=== PATIENT | female | born 1985 | race Caucasian/White ===

== ENCOUNTER 2020-01-01 15:14 | Emergency (ER) | payer MEDICAID, OTHER ==
[~2020-01-01] VITALS: Ht 170.1 cm; Wt 97.5 kg
--- NOTE | 2020-01-01 15:33 | ED GU-Female ---
General Chief Complaint: Female Reproductive Stated Complaint: ABNORMAL VAGINAL BLEEDING/OB Source: patient Exam Limitations: no limitations History of Present Illness Date Seen by Provider: Jan 01, 2020 Time Seen by Provider: 15:33 Initial Comments 34-year-old female presents with vaginal bleeding. Patient's last menstrual period was partially 11/18/2019. She is approximately 6 weeks 1 day . with due date 08/25/20. Patient reports she was out working and felt a "gush of blood" she still has mild light bleeding. Patient does not have any abdominal pain. She has some mid abdominal cramping but no lower pelvis or abdominal cramping. Patient with no other systemic complaints. Allergies and Home Medications Allergies Coded Allergies: No Known Drug Allergies (Unverified , 01/01/20) Home Medications Vit/Iron Fumarate/FA 1 Each Tablet, 1 EACH PO DAILY, (Reported) Patient Home Medication List Home Medication List Reviewed: Yes Review of Systems Review of Systems Constitutional: No chills, No fever EENTM: no symptoms reported Respiratory: no symptoms reported Cardiovascular: no symptoms reported Gastrointestinal: no symptoms reported Genitourinary: see HPI : Yes Expected Date of Delivery: Aug 25, 2020 LMP: November 18, 2019 Musculoskeletal: no symptoms reported Skin: no symptoms reported Psychiatric/Neurological: No Symptoms Reported Past Vmosuqt-Pvlodc-Wmipoq Hx Patient Social History Recent Foreign Travel: No Contact w/Someone Who Travel: No Physical Exam Vital Signs Vital Signs - First Documented 01/01/20 15:18 Temp 36.7 Pulse 100 Resp 18 B/P (MAP) 153/84 (107) Pulse Ox 98 O2 Delivery Room Air Capillary Refill : Height, Weight, BMI Height: '" Weight: lbs. oz. kg; BMI Method: General Appearance: WD/WN, no apparent distress Cardiovascular: normal peripheral pulses, regular rate, rhythm Respiratory: chest non-tender, lungs clear Gastrointestinal: non tender, soft Pelvic: vaginal bleeding, other (defered at pt request ) Progress/Results/Core Measures Suspected Sepsis SIRS Temperature: Pulse: Respiratory Rate: Blood Pressure / Mean: Results/Orders Lab Results Laboratory Tests Test 01/01/20 15:26 01/01/20 15:55 Range/Units Urine Color ORANGE Urine Clarity SLT CLOUDY Urine pH 5.5 5-9 Urine Specific [place] >=1.030 1.016-1.022 Urine Protein 2+ H NEGATIVE Urine Glucose (UA) NEGATIVE NEGATIVE Urine Ketones NEGATIVE NEGATIVE Urine Nitrite NEGATIVE NEGATIVE Urine Bilirubin 1+ H NEGATIVE Urine Urobilinogen 0.2 < = 1.0 MG/DL Urine Leukocyte Esterase NEGATIVE NEGATIVE Urine RBC (Auto) 3+ H NEGATIVE Urine RBC 50-100 H /HPF Urine WBC RARE /HPF Urine Squamous Epithelial Cells 10-25 H /HPF Urine Crystals NONE /LPF Urine Bacteria TRACE /HPF Urine Casts NONE /LPF Urine Mucus NEGATIVE /LPF Urine Culture Indicated NO My Orders Orders - JEREMIE GRAY DO Hcg,Quantitative (01/01/20 15:33) Ua Culture If Indicated (01/01/20 15:34) Vital Signs/I&O 01/01/20 15:18 Temp 36.7 Pulse 100 Resp 18 B/P (MAP) 153/84 (107) Pulse Ox 98 O2 Delivery Room Air Capillary Refill : Progress Note : Time: 15:42 Progress Note Patient is not having any pelvic pain. And pelvic exam was offered but deferred. Patient is only approximately 6 weeks . Discussed with her that at this time is difficult to say if she is having a miscarriage or not. We will obtain a quantitative hCG and have her follow-up with her OB in 2 days for a recheck. Patient stable and discharged home Departure Impression Primary Impression: Threatened in early Disposition: 01 HOME, SELF-CARE Condition: Stable Departure-Patient Inst. Patient Instructions: Bleeding In Early , Threatened Miscarriage (DC) Add. Discharge Instructions: Follow-up with Dr. Brandt in a couple days for recheck of today symptoms All discharge instructions reviewed with patient and/or family. Voiced understanding. JEREMIE GRAY DO Jan 01, 2020 15:33
[2020-01-01] MEDS ORDERED: PREN-37 PO (15:34)
[2020-01-01 15:53] LABS: CLARITY,URINE SLT CLOUDY; COLOR,URINE ORANGE; PH,URINE 5.5 (5-9)
[2020-01-01 15:54] LABS: BILIRUBIN,URINE 1+ (NEGATIVE); GLUCOSE, URINE (UA) NEGATIVE (NEGATIVE); KETONES,URINE NEGATIVE (NEGATIVE); LEUKOCYTE ESTERASE ,URINE NEGATIVE (NEGATIVE); NITRITE,URINE NEGATIVE (NEGATIVE); PROTEIN,URINE 2+ (NEGATIVE)
[2020-01-01 15:55] LABS: BACTERIA,URINE TRACE /HPF; RBC,URINE 50-100 /HPF; WBC,URINE RARE /HPF
[2020-01-01 16:25] VITALS: BP 153/84
--- NOTE | 2020-01-01 16:25 | NUR ---
RN to discharge registration desk as patient left room after in to speak with patient regarding discharge plan. Pt ready to leave and did not know D/C instructions being typed. Presented papers to patient and reviewed with pt verbalizing understanding of instructions. Pt was not asked to re-enter ER for discharge vitals. Pt reports plan to call Dr Ledesma office for follow up and review the HCG Qualitative number as she states the OBGYN ordered this test on her visit.
--- OUTSIDE RECORDS SUMMARY | 2020-01-01 17:00 | XMS REPORT | Continuity of Care Document ---
Author Organization Unknown Address Unknown Phone Unavailable Allergies Active Description Code Type Severity Reaction Onset Reported/Identified Relationship to Patient Clinical Status Yes No Known Drug Allergies [id number] Drug Allergy Unknown N/A 01/01/2020 Medications There is no data. Problems There is no data. Procedures There is no data. Results Test Result Range SUREPATH PAP RFX HPV mRNA E6/E7 - 00:00 CLINICAL INFORMATION: NRG LMP: NRG PREV. PAP: NRG PREV. BX: NRG SOURCE: Cervix NRG STATEMENT OF ADEQUACY: NRG INTERPRETATION/RESULT: NRG DRIVE AWAY DRIVER: NRG COMMENT NRG BLOOD TPYE/RH FACTOR - 12/10/19 11:31 ABO GROUP TNP NRG BLOOD TPYE/RH FACTOR - 12/15/19 13:17 ABO GROUP O NRG RH TYPE RH(D) POSITIVE NRG ANTIBODY SCREEN - 12/15/19 13:17 ANTIBODY SCREEN, RBC W/REFL ID, TITER AND AG NO ANTIBODIES DETECTED NRG RUBELLA IMMUNE STATUS - 12/15/19 13:17 RUBELLA ANTIBODY (IGG) TNP index NRG Complete urinalysis with reflex to cultu re - 01/01/20 15:26 Urine color determination ORANGE NRG Urine clarity determination SLT CLOUDY NRG Urine pH measurement by test strip 5.5 5-9 Specific gravity of urine by test strip >= 1.016-1.022 Urine protein assay by test strip, semi-quantitative 2+ NEGATIVE Urine glucose detection by automated test strip NE GATIVE NEGATIVE Erythrocytes detection in urine sediment by light micr oscopy 3+ NEGATIVE Urine ketones detection by automated test strip NE GATIVE NEGATIVE Urine nitrite detection by test strip NEGATIVE NEGATIVE Urine total bilirubin detection by test strip 1+ NEGATIVE Urine urobilinogen measurement by automated test strip (mass/volume) 0.2 mg/dL < = 1.0 Urine leukocyte esterase detection by dipstick NEG ATIVE NEGATIVE Automated urine sediment erythrocyte cou nt by microscopy (number/high power field) [HPF] NRG Automated urine sediment leukocyte count by microscopy (number/high power field) RARE NRG Bacteria detection in urine sediment by light microsco py TRACE NRG Squamous epithelial cells detection in u rine sediment by light microscopy 10-25 NRG Crystals detection in urine sediment by light microsco py NONE NRG Casts detection in urine sediment by light microscopy NONE NRG Mucus detection in urine sediment by light microscopy NEGATIVE NRG Complete urinalysis with reflex to culture NO NRG Serum or plasma choriogonadotropin measu rement (units/volume) - 01/01/20 15:55 Serum or plasma choriogonadotropin measurement (units/ volume) 92489 m[iU]/mL <5 Encounters ACCT No. Visit Date/Time Discharge Status Pt. Type Provider Facility Loc./Unit Complaint [id number] 12/15/2019 12:30:00 12/15/2019 23:59: 59 [facility] Outpatient CLAUDIO ELDER [facility] [id number] 12/15/2019 12:30:00 Document Registration [id number] 12/10/2019 10:30:00 Document Registration [id number] 01/01/2020 15:16:00 020 16:25:00 DIS Emergency GRAY DOKERAR Eduar [facility] ER FS ABNORMAL VAGINAL BLEEDI NG DURING
== END 2020-01-01 16:25 | disposition home or self-care (01) ==
LOC: ER FS 15:16
DX: O20.0 Threatened abortion (principal); Z3A.01 Less than 8 weeks gestation of pregnancy
CPT/HCPCS: 36415; 81000; 84702

== ENCOUNTER → 2020-05-19 | Outpatient (CLI) | payer MEDICAID ==
[~2020-05-19] MED LIST: PREN-37 PO
[2020-05-19 10:21] LABS: HEMATOCRIT 34 % (35-52); HEMOGLOBIN 11.5 G/DL (11.5-16.0); LYMPHOCYTES % (AUTO) 15 % (12-44); MEAN CORPUSCULAR HEMOGLOBIN 33 PG (25-34); MEAN CORPUSCULAR HGB CONC 34 G/DL (32-36); MEAN CORPUSCULAR VOLUME 96 FL (80-99); MEAN PLATELET VOLUME 11.1 FL (7.4-10.4); NEUTROPHILS % (AUTO) 79 % (42-75); PLATELET COUNT 328 10^3/uL (130-400); WHITE BLOOD COUNT 18.1 10^3/uL (4.3-11.0)
[2020-05-19 10:22] LABS: BASOPHILS % (AUTO) 0 % (0-10); EOSINOPHILS % (AUTO) 1 % (0-10); MONOCYTES % (AUTO) 2 % (0-12)
[2020-05-19 10:23] LABS: EOSINOPHILS # (AUTO) 0.2 10^3/uL (0.0-0.3); LYMPHOCYTES # (AUTO) 2.7 X 10^3 (1.0-4.0); MONOCYTES # (AUTO) 0.4 X 10^3 (0.0-1.0); NEUTROPHILS # (AUTO) 14.3 X 10^3 (1.8-7.8)
[2020-05-19 10:36] LABS: BAND NEUTROPHILS 1 %; BASOPHILS % (MANUAL) 0 %; EOSINOPHILS % (MANUAL) 2 %; LYMPHOCYTES % (MANUAL) 11 %; METAMYELOCYTES % 1 %; MONOCYTES % (MANUAL) 0 %; NEUTROPHILS % (MANUAL) 85 %
== END ==
LOC: LAB FS 09:17
PROVIDERS: ATTEND Family Medicine
DX: Z34.92 Encounter for supervision of normal pregnancy, unspecified, second trimester (principal); Z3A.00 Weeks of gestation of pregnancy not specified
CPT/HCPCS: 36415; 82950; 85007; 85027; 86592

== ENCOUNTER 2020-07-30 05:39 | Outpatient (RCR) | payer MEDICAID ==
[~2020-07-30] VITALS: Ht 170.2 cm; Wt 105.9 kg
[~2020-07-30 05:39] MED LIST changes: +PANT40TA52 PO
[2020-08-03] MEDS ORDERED: DCS100C PO (07:28)
[2020-08-03] MEDS ORDERED: IBUP-844 PO (07:28)
[2020-08-03] MEDS ORDERED: ACHD5005 PO (07:28)
== END 2020-08-02 12:29 | disposition home or self-care (01) ==
LOC: PREOP 05:39
PROVIDERS: ATTEND Obstetrics & Gynecology
DX: Z01.812 Encounter for preprocedural laboratory examination (principal); O34.219 Maternal care for unspecified type scar from previous cesarean delivery; Z20.822 Contact with and (suspected) exposure to COVID-19
CPT/HCPCS: 87635

== ENCOUNTER 2020-08-03 06:17 | Inpatient (IN) | payer MEDICAID ==
[~2020-08-03] VITALS: Ht 170.2 cm; Wt 109.2 kg
[2020-08-03] VITALS (8 sets, daily range): BP systolic 101–138; BP diastolic 62–95
[~2020-08-03 06:17] MED LIST changes: +CITRIC ACID/SOB CIT (BICITRA) 30 ML UDC ONE; +FAMOTIDINE 20MG/2ML IV (PEPCID) ONE; +METOCLOPRAMIDE INJ 10 MG/2 ML (REGLAN) ONE; +ceFAZolin 2 GM IV Premixed 50 ML ONE
--- NOTE | 2020-08-03 06:23 | NUR ---
ANATOLY CHANDLER presented to unit via ambulation from home/ED, accompanied by SO, for REPEAT C/S. ANATOLY CHANDLER weighed, gowned, voided, and to bed. EFHM and TOCO applied, VS taken. ANATOLY CHANDLER oriented to bed controls, call light, TV, heat, and A/C controls.
[2020-08-03] MEDS ORDERED: FAMOTIDINE 20MG/2ML IV (PEPCID) IV ONE (06:30)
[2020-08-03] MEDS ORDERED: CATHETER FLUSH 10 ML SYR IV PRN (06:30)
[2020-08-03] MEDS ORDERED: ceFAZolin 2 GM IV Premixed 50 ML IV ONE (06:30)
[2020-08-03] MEDS ORDERED: CITRIC ACID/SOB CIT (BICITRA) 30 ML UDC PO ONE (06:30)
[2020-08-03] MEDS ORDERED: LACTATED RINGERS 1,000 ML IV PRN ×2 (06:30)
[2020-08-03] MEDS ORDERED: METOCLOPRAMIDE INJ 10 MG/2 ML (REGLAN) IV ONE (06:30)
[2020-08-03] MEDS ORDERED: ONDANSETRON 4 MG/2 ML (SDV) Z0FRAN ONE (07:01)
[2020-08-03] MEDS ORDERED: fentaNYL INJECTION 100 MCG/2 ML AMP ONE (07:01)
[2020-08-03] MEDS ORDERED: OXYTOCIN PRE-MIX DRIP 1,000 ML IV ONE (07:01)
[2020-08-03] MEDS ORDERED: BUPIVACAINE 0.5% 30 ML (SENSORCAINE) VIAL ONE (07:04)
[2020-08-03 07:08] LABS: BASOPHILS % (AUTO) 0 % (0-10); EOSINOPHILS # (AUTO) 0.1 10^3/uL (0.0-0.3); EOSINOPHILS % (AUTO) 1 % (0-10); HEMATOCRIT 42 % (35-52); HEMOGLOBIN 13.9 g/dL (11.5-16.0); LYMPHOCYTES # (AUTO) 2.6 10^3/uL (1.0-4.0); LYMPHOCYTES % (AUTO) 17 % (12-44); MEAN CORPUSCULAR HEMOGLOBIN 32 pg (25-34); MEAN CORPUSCULAR HGB CONC 33 g/dL (32-36); MEAN CORPUSCULAR VOLUME 98 fL (80-99); MEAN PLATELET VOLUME 11.6 fL (9.0-12.2); MONOCYTES # (AUTO) 0.7 10^3/uL (0.0-1.0); MONOCYTES % (AUTO) 5 % (0-12); NEUTROPHILS # (AUTO) 11.8 10^3/uL (1.8-7.8); NEUTROPHILS % (AUTO) 77 % (42-75); PLATELET COUNT 315 10^3/uL (130-400); WHITE BLOOD COUNT 15.2 10^3/uL (4.3-11.0)
--- NOTE | 2020-08-03 07:18 | History & Physical-OB ---
OB - Chief Complaint & HPI Date/Time Date of Admission: Date of Admission: Aug 03, 2020 at 06:17 Date seen by a Provider: Aug 03, 2020 Time Seen by a Provider: 07:05 Chief Complaint/History OB-Reason for Admission/Chief: Section Hx : 3 Hx Para: 2 Expected Date of Delivery: Aug 09, 2020 Gestational Age in Weeks: 39 Gestational Age in Days: 2 Admission Nurse Assessment Rev: Yes History of Labs O pos Antibody neg RI RPR NR HBsAg NR HIV NR GC neg Allergies and Home Medications Allergies Coded Allergies: No Known Drug Allergies (Unverified , 01/01/20) Home Medications Pantoprazole Sodium 40 Mg Tablet.dr, 40 MG PO DAILY, (Reported) Vit/Iron Fumarate/FA 1 Each Tablet, 1 EACH PO DAILY, (Reported) Patient Home Medication List Home Medication List Reviewed: Yes OB - History Hx of Present Care: Yes Ultrasounds: Normal mid trimester US Obstetrical Complications: Other (AMA, Tobacco use in ) Medical Complications: None Patient Past Medical History Hx of Tobacco use and LEEP Immunizations Date of Influenza Vaccine: Apr 01, 2020 OB - Admission Exam Physical Exam Vitals: Vital Signs 08/03/20 06:31 Temp 36.5 Pulse 90 Resp 18 Pulse Ox 97 O2 Delivery Room Air HEENT: NCAT Heart: Rhythm Normal Lungs: Clear Abdomen: Gravid Extremities: Normal Reflexes: Normal Heart Rate: 130's Accelerations: Accelerations Present Decelerations: No Decelerations Short Term Variability: Present Marketing Support Coordinator Variability: Average (6-25) Contractions on Admission: < 5 Minutes Apart Intensity: Mild Labs Laboratory Tests Test 08/03/20 06:56 Range/Units OB - Assessment/Plan/Diagnosis Assessment Assessment: section Admission Dx 35 yo @ 39 week Previous Admission Status: Inpatient Order (span 2 midnights) Reason for Inpatient Admission: Repeat Plan Plan: Section GINNA RUTLEDGE DO Aug 03, 2020 07:17
[2020-08-03] MEDS ORDERED: DCS100C PO (07:28)
[2020-08-03] MEDS ORDERED: IBUP-844 PO (07:28)
[2020-08-03] MEDS ORDERED: ACHD5005 PO (07:28)
--- NOTE | 2020-08-03 07:29 | Discharge Inst-Women's Service ---
Discharge Inst-Women's Serv Depart Medication/Instructions New, Converted or Re-Newed RX: RX on Chart Final Diagnosis POD 2 RLTCS Problems Reviewed?: Yes Consults/Follow Up Additional Follow Up: Yes Orders/Referrals Dr. Israel in 7-10 days and in 6 weeks Activity Activity: Activity as Tolerated Driving Instructions: No Driving for 1 Week NO SMOKING: NO SMOKING Nothing Inside Vagina: No Douching, No [place], No Tampons Diet Discharge Diet: No Restrictions Symptoms to Report to : Bleeding Excessive, Pain Increased, Fever Over 101 Degrees F, Vaginal Bleeding Increase, Questions/Concerns For Any Problems or Questions: Contact Your Physician Skin/Wound Care Infection Signs and Symptoms: Increased Redness, Foul Odor of Wound, Increased Drainage, Skin Itchy or Has a Rash, Increased Swelling, Temperature Above 101 F Operative Area Clean and Dry: Keep Incision Clean/Dry Stitches/Amy/Dermabond: Dermabond, Care of Stitches Bathing Instructions: GINNA Sow DO Aug 03, 2020 07:29
[2020-08-03] MEDS ORDERED: MEASLES,MUMPS,RUBELLA 1 EA INJ SC SCH (07:30)
[2020-08-03] MEDS ORDERED: TETANUS,DIPTH,PERTUSS P/F (BOOSTRIX) 0.5 ML VIAL IM SCH (07:30)
[2020-08-03] MEDS ORDERED: ONDANSETRON 4 MG/2 ML (SDV) Z0FRAN IVP PRN (07:30)
--- NOTE | 2020-08-03 07:50 | NUR ---
#20g IV restarted to Lt. AC per anesthesia. secured with opsite.
--- NOTE | 2020-08-03 08:02 | NUR ---
monitors dc'd. pt ambulated to OR room with staff @ side.
[2020-08-03 08:28] LABS: BAND NEUTROPHILS 1 %; BASOPHILS % (MANUAL) 0 %; EOSINOPHILS % (MANUAL) 3 %; LYMPHOCYTES % (MANUAL) 21 %; MONOCYTES % (MANUAL) 3 %; NEUTROPHILS % (MANUAL) 72 %; RBC MORPH NORMAL
[2020-08-03 08:39] LABS: AMPHETAMINE SCREEN, URINE NEGATIVE (NEGATIVE); BARBITURATE SCREEN URINE NEGATIVE (NEGATIVE); BENZODIAZEPINES SCREEN URINE NEGATIVE (NEGATIVE); CANNABINOID SCREEN, URINE POSITIVE (NEGATIVE); COCAINE SCREEN URINE NEGATIVE (NEGATIVE); METHADONE STAT NEGATIVE (NEGATIVE); METHAMPHETAMINE SCREEN URINE S NEGATIVE (NEGATIVE); OPIATE SCREEN URINE NEGATIVE (NEGATIVE); OXYCODONE STAT NEGATIVE (NEGATIVE); PROPOXYPHENE STAT NEGATIVE (NEGATIVE); TRICYCLIC ANTIDEPRESSANTS SCRE NEGATIVE (NEGATIVE)
[2020-08-03] MEDS: KETOROLAC 30 MG/ML VIAL IV SCH ×3 (09:06→20:01)
--- NOTE | 2020-08-03 09:44 | NUR ---
Jones catheter dc'd. 300cc dark, yellow urine noted. leobardo-care offered. v-pad in place. FFu/0; lt rubra noted, no clots expressed.
--- NOTE | 2020-08-03 09:58 | NUR ---
pt transferred to room 306 via bed with this RN @ side. pt stable, no sx's of distress noted. call light within reach. familiarized with room surroundings.
[2020-08-03] MEDS: OXYTOCIN PRE-MIX DRIP 500 ML IV SCH ×2 (10:46→14:41)
[2020-08-03] MEDS ORDERED: LACTATED RINGERS 1,000 ML IV ONE (11:00)
[2020-08-03] MEDS ORDERED: NALOXONE 0.4 MG/ML 1 ML (NARCAN) VIAL IV PRN ×2 (11:00)
[2020-08-03] MEDS ORDERED: fentaNYL INJECTION 100 MCG/2 ML AMP INJ ONE (11:00)
[2020-08-03] MEDS ORDERED: ONDANSETRON 4 MG/2 ML (SDV) Z0FRAN IV PRN (11:00)
[2020-08-03] MEDS ORDERED: diphenhydrAMINE 50 MG/ML INJ (BENADRYL) IJ PRN (11:00)
[2020-08-03] MEDS ORDERED: METOCLOPRAMIDE INJ 10 MG/2 ML (REGLAN) IV PRN (11:00)
--- NOTE | 2020-08-03 11:10 | NUR ---
leobardo-care offered. v-pad and panties applied. lt bubba noted.
--- NOTE | 2020-08-03 11:15 | NUR ---
pt transferred to nursery via w/c with this RN and s/o @ side for visiting with .
[2020-08-03] MEDS: DOCUSATE SODIUM 100 MG (COLACE) CAP PO SCH ×2 (13:17→20:01)
[2020-08-03] MEDS: HYDROcodone/APAP 5 MG/325 MG (LORTAB) TAB PO PRN (13:17)
[2020-08-03] MEDS ORDERED: CATHETER FLUSH 10 ML SYR IV SCH (14:00)
--- NOTE | 2020-08-03 14:19 | NUR ---
pt reports up to BR by self- +void.
--- NOTE | 2020-08-03 14:51 | NUR ---
report given to SAMEER Amanda.
--- NOTE | 2020-08-03 15:00 | NUR ---
Care of patient assumed.
[2020-08-03] MEDS ORDERED: NICOTINE 14 MG (NICODERM) PATCH TD SCH (18:00)
--- NOTE | 2020-08-03 18:35 | NUR ---
Abdominal binder applied for patient's comfort. Patient denies any further needs or concerns at this time.
--- NOTE | 2020-08-03 21:11 | OPERATIVE REPORT ---
DATE OF SERVICE: PREOPERATIVE DIAGNOSIS: A 35-year-old G3, P2 at 39 weeks and 2 days gestation. POSTOPERATIVE DIAGNOSIS: A 35-year-old G3, P2 at 39 weeks and 2 days gestation. PROCEDURE: Repeat low transverse section. SURGEON: Garrett Rutledge DO ANESTHESIA: Spinal. ESTIMATED BLOOD LOSS: 600 mL. URINE OUTPUT: 150 mL clear at the end of procedure. FLUIDS: 1500 mL lactated Ringer's solution. FINDINGS: A live female infant weighing 8 pounds 2 ounces, Apgars are pending. Grossly normal appearing uterus, bilateral fallopian tubes and ovaries. SPECIMEN SENT: Placenta. INDICATIONS FOR PROCEDURE: This 35-year-old female who is a patient of late transfer from Dr. Mcdermott in [place] for assumption of her care at approximately 35 weeks. I took over her care. She was scheduled for a repeat , she had had 2 prior. At the time of scheduling her , we reviewed the risk of the procedure, again they were reviewed in the preoperative area. After all the patient's questions were answered, consent was obtained and the patient was taken to the operating room. OPERATIVE REPORT IN DETAIL: Once in the operating room, spinal anesthesia was found to be adequate, placed in the. She was placed in the supine position with a leftward tilt, prepped and draped in normal sterile fashion. A timeout was performed and anesthesia was tested. I then made a Pfannenstiel skin incision through the previously existing scar using a knife and carried down to underlying fascia using Bovie cautery. The fascial incision extended laterally using Bovie cautery. The superior aspect of the fascial incision was then grasped with Dawson clamps, tented up and dissected off the underlying rectus muscles. The inferior aspect of the fascial incision was then grasped with Dawson clamps, tented up and dissected off the underlying rectus muscles. The rectus muscle was then dissected down the midline using Tenorio scissors, which exposed the peritoneum, which I entered bluntly using blunt traction. Bryon ring retractor was placed in the peritoneal incision, which offers excellent lateral sidewall retraction. I then identified the lower uterine segment, which was found to be thinned out and making a low transverse incision to the vesicouterine peritoneum and bluntly dissected off the lower uterine segment. I proceeded with my myotomy until membranes were visualized, at which point I extended the uterine incision laterally and superiorly using bandage scissors. Amniotomy was performed at that point. Clear fluid was noted. The was found in vertex presentation. With gentle fundal pressure, the infant's head was elevated up to the incision where it was delivered through the incision. The nares and oropharynx were bulb suctioned. Anterior and posterior shoulders were delivered after reducing a nuchal cord x1. The was then brought out into the operative field where the cord was duly clamped and cut and infant was handed off to waiting nurses in attendance. Cord blood was collected, 3-vessel cord with intact placenta was delivered spontaneously thereafter. IV Pitocin is initiated to facilitate uterine contraction. Uterine fundus confirmed by manual massage. The uterus was then exteriorized and cleared of all endometrial clots and debris. I then proceeded with closing the uterine incision using 0 Vicryl suture in a running locked fashion. A second layer of imbricating 0 Monocryl was placed. Excellent hemostasis was noted after doing this. I then placed the uterus back within the pelvis and copiously irrigated the pelvis using normal saline. Once again, there was no active bleeding noted from any of my dissection planes. I placed Interceed antiadhesive over my low transverse incision. I then removed the Bryon ring retractor and proceeded with closing the peritoneum using 3-0 Vicryl suture in a running fashion. The rectus muscle reapproximated using 3-0 Vicryl suture in interrupted fashion. The fascia was reapproximated using 0 Vicryl suture in a running fashion. The subcutaneous tissue was reapproximated using 3-0 plain interrupted subcutaneous stitch and skin reapproximated using 4-0 Monocryl running subcuticular. Dermabond was applied to the incision and sterile dressing was adhesed with white tape. The patient tolerated the procedure well and was taken to recovery area in stable condition. Lap and sponge count was correct at the end of the procedure. Instrument counts correct as well. Two grams of Ancef were given preoperatively for infection prophylaxis. Job ID: [id number] DocumentID: [id number] Dictated Date: 08/03/2020 17:26:09 Sales Contractor Date: 08/03/2020 21:09:10 Dictated By: GARRETT RUTLEDGE DO
[2020-08-04] VITALS: BP 131/82
[2020-08-04] MEDS: KETOROLAC 30 MG/ML VIAL IV SCH (00:19)
[2020-08-04] MEDS: HYDROcodone/APAP 5 MG/325 MG (LORTAB) TAB PO PRN ×4 (00:20→21:13)
[2020-08-04 04:00] VITALS: BP 128/69
[2020-08-04 05:32] LABS: BASOPHILS # (AUTO) 0.1 10^3/uL (0.0-0.1); BASOPHILS % (AUTO) 0 % (0-10); EOSINOPHILS # (AUTO) 0.2 10^3/uL (0.0-0.3); EOSINOPHILS % (AUTO) 1 % (0-10); HEMATOCRIT 31 % (35-52); HEMOGLOBIN 10.7 g/dL (11.5-16.0); LYMPHOCYTES # (AUTO) 2.7 10^3/uL (1.0-4.0); LYMPHOCYTES % (AUTO) 16 % (12-44); MEAN CORPUSCULAR HEMOGLOBIN 33 pg (25-34); MEAN CORPUSCULAR HGB CONC 34 g/dL (32-36); MEAN CORPUSCULAR VOLUME 96 fL (80-99); MEAN PLATELET VOLUME 11.9 fL (9.0-12.2); MONOCYTES # (AUTO) 0.9 10^3/uL (0.0-1.0); MONOCYTES % (AUTO) 6 % (0-12); NEUTROPHILS # (AUTO) 13.1 10^3/uL (1.8-7.8); NEUTROPHILS % (AUTO) 77 % (42-75); PLATELET COUNT 287 10^3/uL (130-400)
--- NOTE | 2020-08-04 07:41 | Anesthesia-Regional Post-Op ---
Regional Patient Condition Mental Status: Alert, Oriented x3 Circulation: Same as Pre-Op Headache: Absent Sensation: Full Recovery Motor Block: Absent Post Op Complications Complications None Follow Up Care/Instructions Patient Instructions None needed. Anesthesia/Patient Condition Patient is doing well, no complaints, stable vital signs, no apparent adverse anesthesia problems. No complications reported per nursing. RENO BLOCK CRNA Aug 04, 2020 07:41
[2020-08-04 07:55] VITALS: BP 115/75
[2020-08-04] MEDS: DOCUSATE SODIUM 100 MG (COLACE) CAP PO SCH ×2 (08:05→21:44)
--- NOTE | 2020-08-04 08:20 | NUR ---
Dr Israel to see patient and review plan of care.
--- NOTE | 2020-08-04 08:35 | Postpartum Progress Note ---
Note Note Day # 1 Subjective: Patient is without complaints. Ambulating, voiding. Tolerating a regular diet without nausea or vomiting. Normal lochia. Pain is well controlled with oral pain medications. Objective: Physical Exam: General - Alert and oriented, no apparent distress Abdomen - Soft, appropriately tender to palpation, non-distended, fundus firm at umbilicus Extremities - no edema, negative Mary Lou's bilaterally Incision- c/d/i Assessment: POD 1 RLTCS Acute blood loss anemia Tobacco use Plan: Routine care. Encourage breast feeding. Encourage ambulation. Ferrous sulfate supplementation. Plan for discharge tomorrow Vitals - Labs Vital Signs - I&O Vital Signs Date Time Temp Pulse Resp B/P (MAP) Pulse Ox O2 Delivery O2 Flow Rate FiO2 08/04/20 07:55 36.6 80 14 115/75 (88) 96 Room Air 08/04/20 04:00 36.7 81 18 128/69 (88) 98 Room Air 08/04/20 00:00 36.5 88 18 131/82 (98) 99 Room Air 08/03/20 21:00 98 Room Air 08/03/20 20:00 37.0 90 20 135/80 (98) 99 Room Air 08/03/20 17:10 36.8 81 18 125/67 (86) 97 Room Air 08/03/20 13:51 97 Room Air 08/03/20 13:14 36.5 73 18 120/62 (81) 98 Room Air 08/03/20 09:49 Room Air 08/03/20 09:49 36.2 18 129/77 (94) 100 08/03/20 09:49 36.2 74 18 129/77 (94) 100 Room Air 08/03/20 09:34 36.7 18 133/85 (101) 100 08/03/20 09:16 36.2 18 101/79 (86) 100 08/03/20 09:01 36.2 18 138/93 (108) 99 I & O 08/04/20 07:00 Intake Total 6130 ml Output Total 1550 ml Balance 4580 ml Labs Laboratory Tests 08/04/20 05:05: White Blood Count 17.0H, Red Blood Count 3.28L, Hemoglobin 10.7#L, Hematocrit 31L, Mean Corpuscular Volume 96, Mean Corpuscular Hemoglobin 33, Mean Corpuscular Hemoglobin Concent 34, Red Cell Distribution Width 14.0, Platelet Count 287, Mean Platelet Volume 11.9, Immature Granulocyte % (Auto) 1, Neutrophils (%) (Auto) 77H, Lymphocytes (%) (Auto) 16, Monocytes (%) (Auto) 6, Eosinophils (%) (Auto) 1, Basophils (%) (Auto) 0, Neutrophils # (Auto) 13.1H, Lymphocytes # (Auto) 2.7, Monocytes # (Auto) 0.9, Eosinophils # (Auto) 0.2, Basophils # (Auto) 0.1, Immature Granulocyte # (Auto) 0.1 Microbiology 08/03/20 MRSA Screen - Final, Complete MRSA not isolated GINNA RUTLEDGE DO Aug 04, 2020 08:35
[2020-08-04] MEDS ORDERED: NICOTINE PATCH REMOVAL TP SCH ×2 (08:59→17:59)
[2020-08-04] MEDS: IBUPROFEN 600 MG (MOTRIN) TAB PO SCH ×3 (09:27→21:44)
--- NOTE | 2020-08-04 09:32 | NUR ---
pt up to shower at this time.
[2020-08-04 11:05] VITALS: BP 125/81
--- NOTE | 2020-08-04 13:39 | NUR ---
CM/SS visited with the patient for social service consult. The patient was sitting in bed holding baby girl at time of visit. The patient was pleasant and willing to discuss discharge planning. A DCF report was not made. Home: The patient lives at home with her significant other. They are planning to move to [place] once their house sells to be closer to his work. Supports: The patient reports that she has 2 additional children but she does not have custody of them due to past drug use. The patient reports that her 16 and 9 year old live with her Father in [place], [place]. She is still in communication with them and is allowed to see them when she is able. The patient reports that she has a "great" support system with the father of baby's family and her's in [place]. Supplies: The patient denies a need for baby supplies. States that she has a bassinet, crib, diapers, bottles, clothes, and car seat. Resources: The patient has used Parents as Teachers and to [employer] in the past. CM/SS discussed Healthy Families. She declined at this time. Substance use: The patient reports that she does have a past drug history. 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 She denies current substances other than THC. The patient reports she believes it has been a month since she's used THC for her nausea. She states she does not use THC often and reports that she does not plan to use it again. CM/SS no further needs.
[2020-08-04 14:58] VITALS: BP 127/92
--- NOTE | 2020-08-04 16:45 | NUR ---
Report from Warren Alvarez RN
[2020-08-04] MEDS ORDERED: NICOTINE 14 MG (NICODERM) PATCH TD SCH (18:00)
[2020-08-04 21:40] VITALS: BP 139/70
--- NOTE | 2020-08-04 21:40 | NUR ---
RN to room for assessment. VSS. Pt complains of pain, Baldev gave 2 pain meds as ordered. Routine, scheduled meds given. Pt incision MARLON with no drainage. Pt reports minimal bleeding with no clots passed. Encouraged pt to call if pain is not resolved. Denies any needs or concerns at this time
[2020-08-05] MEDS: IBUPROFEN 600 MG (MOTRIN) TAB PO SCH ×3 (02:54→14:49)
[2020-08-05] MEDS: HYDROcodone/APAP 5 MG/325 MG (LORTAB) TAB PO PRN ×3 (02:54→14:51)
[2020-08-05 02:55] VITALS: BP 130/76
[2020-08-05 07:35] VITALS: BP 132/56
--- NOTE | 2020-08-05 07:44 | Postpartum Progress Note ---
ISSA ACEVEDO MED STUDENT 08/05/20 0744: Note Note Day # 2 Subjective: Patient is without complaints. Ambulating, voiding. Tolerating a regular diet without nausea or vomiting. Normal lochia. Pain is well controlled with oral pain medications. Objective: Physical Exam: General - Alert and oriented, no apparent distress Abdomen - Soft, appropriately tender to palpation, non-distended, fundus firm at umbilicus Extremities - no edema, negative Mary Lou's bilaterally Incision- c/d/i Assessment: POD 2 RLTCS Acute blood loss anemia Tobacco use Plan: Routine care. Encourage breast feeding. Encourage ambulation. Ferrous sulfate supplementation. Plan for discharge today. Vitals - Labs Vital Signs - I&O Vital Signs Date Time Temp Pulse Resp B/P (MAP) Pulse Ox O2 Delivery O2 Flow Rate FiO2 08/05/20 02:55 36.4 73 18 130/76 (94) 97 Room Air 08/04/20 21:40 36.9 86 18 139/70 (93) 96 Room Air 08/04/20 14:58 36.7 77 20 127/92 (104) 97 Room Air 08/04/20 11:05 36.4 77 20 125/81 (96) 97 Room Air 08/04/20 07:55 36.6 80 14 115/75 (88) 96 Room Air I & O 08/05/20 06:59 Intake Total 1800 ml Balance 1800 ml Labs Microbiology 08/03/20 MRSA Screen - Final, Complete MRSA not isolated GINNA RUTLEDGE DO 08/05/20 0808: Note Note Verification and Attestation of Medical Student E/M Service A medical student performed and documented this service in my presence. I reviewed and verified all information documented by the medical student and made modifications to such information, when appropriate. I personally performed the physical exam and medical decision making. Ginna Rutledge, Aug 05, 2020,08:08 ISSA ACEVEDO MED STUDENT Aug 05, 2020 07:44 GINNA RUTLEDGE DO Aug 05, 2020 08:08
--- NOTE | 2020-08-05 08:55 | NUR ---
AM shift assessment completed and vital signs obtained by Nursing Students, see interventions. Plan of care reviewed. Patient verbalizes understanding and questions answered. Scheduled Motrin and Colace PO given along with Lortab 2 PO for patient's c/o pain rated 7/10. Patient denies any further needs or concerns at this time.
[2020-08-05] MEDS: DOCUSATE SODIUM 100 MG (COLACE) CAP PO SCH (08:57)
--- NOTE | 2020-08-05 10:32 | NUR ---
Discharge instructions and medications reviewed with patient both written and verbally. Patient verbalizes understanding and questions answered. Written prescriptions given to patient.
--- NOTE | 2020-08-05 13:05 | NUR ---
Report from Vanesa Rivera RN
--- NOTE | 2020-08-05 14:30 | NUR ---
S.O. taking prescriptions to fill at this time.
[2020-08-05 14:55] VITALS: BP 129/68
--- NOTE | 2020-08-05 16:20 | NUR ---
Pt called this RN to room. C/o R sided pain on incision. Discussed that that is the side the surgeon works on, so it is not uncommon for pain to be worse on that side. Pt reassured. S.O. back with prescriptions back at this time.
== END 2020-08-05 18:09 | disposition home or self-care (01) | DRG 787 ==
LOC: LDRP 06:17 → WS 10:15
PROVIDERS: ADMIT Obstetrics & Gynecology; ATTEND Obstetrics & Gynecology
PROC: 10D00Z1 Extraction of Products of Conception, Low, Open Approach (ICD-10-PCS; principal; 2020-08-03 08:03)
DX: O34.211 Maternal care for low transverse scar from previous cesarean delivery (principal); D62 Acute posthemorrhagic anemia; O69.81X0 Labor and delivery complicated by cord around neck, without compression, not applicable or unspecified; O90.81 Anemia of the puerperium; O99.333 Smoking (tobacco) complicating pregnancy, third trimester; F17.200 Nicotine dependence, unspecified, uncomplicated; Z37.0 Single live birth; Z3A.39 39 weeks gestation of pregnancy
CPT/HCPCS: 36415; 80306; 85007; 85025; 85027; 86850; 86900; 86901; 87081; 94664; 94760

== ENCOUNTER → 2021-06-21 | Outpatient (CLI) | payer MEDICAID ==
[~2021-06-21] MED LIST changes: +ACHD5005 PO; -CITRIC ACID/SOB CIT (BICITRA) 30 ML UDC ONE; +DOCU-239 PO; -FAMOTIDINE 20MG/2ML IV (PEPCID) ONE; +IBUP-844 PO; -METOCLOPRAMIDE INJ 10 MG/2 ML (REGLAN) ONE; -ceFAZolin 2 GM IV Premixed 50 ML ONE
--- NOTE | 2021-06-21 18:00 | Diagnostic Imaging Report ---
INDICATION: survey. TECHNIQUE: Multiple real-time grayscale images were obtained over the gravid uterus. COMPARISON: None. FINDINGS: There is a single live fetus in a transverse presentation, head to the maternal right. heart rate was recorded at 140 BPM. Placenta is posterior. There appears to be a complete placenta previa. Amniotic fluid volume appears normal. Cervical length is 4.6 cm. kidneys, bladder, and stomach are unremarkable. brain is unremarkable. There is a three-vessel cord with normal insertion. spine is unremarkable. Four-chamber heart views are limited. Facial anatomy was also limited due to position. Biometrical measurements are as follows: Biparietal 4.26 cm, age 19 weeks 0 days. Head circumference 16.38 cm, age 19 weeks 1 days. Abdominal circumference 13.81 cm, age 19 weeks 2 days. Femur length 3.79 cm, age 22 weeks 1 days. Sonographic estimate age: 20 weeks 0 days. Sonographic estimated date of delivery: 11/08/2021. Estimated Weight: 349 gm (+/- 51 gm). LMP percentile: 98%. heart rate: 140 beats per minute. number: 1 of 1. IMPRESSION: 1. Single live IUP of 20 weeks 0 days gestational age. Estimated date of confinement sonographically is 11/08/2021. 2. Findings consistent with complete placenta previa. Follow-up is recommended. In addition, a follow-up for further evaluation of four-chamber heart and facial anatomy could be performed. Dictated by: Dictated on workstation # [id number]
== END ==
LOC: RAD 13:00
PROVIDERS: ATTEND Nurse Practitioner Women's Health
DX: Z34.02 Encounter for supervision of normal first pregnancy, second trimester (principal); Z3A.20 20 weeks gestation of pregnancy
CPT/HCPCS: 76805

== ENCOUNTER 2021-07-15 05:38 | Inpatient (IN) | payer MEDICAID ==
[~2021-07-15] VITALS: Ht 170.2 cm; Wt 93.9 kg
[2021-07-15] VITALS (11 sets, daily range): BP systolic 94–137; BP diastolic 48–79
[2021-07-15] MEDS ORDERED: NS IV 500 ML 500 ML IV SCH (06:15)
[2021-07-15] MEDS ORDERED: ceFAZolin 2 GM IV Premixed 50 ML IV ONE (06:15)
[2021-07-15] MEDS ORDERED: TRANEXAMIC ACID INJECTION 1,000 MG in NS (IVPB) 50 ML IV ONE (06:15)
[2021-07-15] MEDS ORDERED: NALOXONE 0.4 MG/ML 1 ML (NARCAN) VIAL IV PRN (07:15)
[2021-07-15] MEDS ORDERED: ONDANSETRON 4 MG/2 ML (SDV) Z0FRAN IVP PRN ×2 (07:15→09:30)
[2021-07-15] MEDS ORDERED: HYDROmorphone 2 MG/ML VIAL (DILAUDID) IV PRN (07:15)
[2021-07-15] MEDS ORDERED: MEASLES,MUMPS,RUBELLA 1 EA INJ SC SCH (07:15)
[2021-07-15] MEDS ORDERED: TETANUS,DIPTH,PERTUSS P/F (BOOSTRIX) 0.5 ML VIAL IM SCH (07:15)
[2021-07-15] MEDS ORDERED: proPOfol 200 MG/20 ML (DIPRIVAN) VIAL IV ONE (07:17)
[2021-07-15] MEDS ORDERED: NEOSTIGMINE 3 MG/3 ML VIAL ONE (07:17)
[2021-07-15] MEDS ORDERED: fentaNYL INJ 100 MCG/2 ML AMP ONE ×2 (07:17→08:32)
[2021-07-15] MEDS ORDERED: LIDOCAINE PF 2% 5 ML (XYLOCAINE) VIAL ONE (07:17)
[2021-07-15] MEDS ORDERED: MIDAZOLAM 2 MG/2 ML (VERSED) VIAL ONE (07:17)
[2021-07-15] MEDS ORDERED: SUCCINYLCHOLINE INJ 100 MG/5 ML SYR/VIAL ONE (07:17)
[2021-07-15] MEDS ORDERED: ROCURONIUM 10 MG/ML 5 ML SYRINGE IV ONE (07:17)
[2021-07-15] MEDS ORDERED: GLYCOPYRROLATE 0.2 MG/ML (ROBINUL) 2 ML VIAL ONE (07:17)
[2021-07-15] MEDS ORDERED: BUPIVACAINE 0.5% 30 ML (SENSORCAINE) VIAL ONE (07:18)
--- NOTE | 2021-07-15 07:22 | Discharge Inst-Women's Service ---
Discharge Inst-Women's Serv Depart Medication/Instructions New, Converted or Re-Newed RX: Transmitted to Pharmacy Final Diagnosis POD 2 RLTCS- demise Problems Reviewed?: Yes Consults/Follow Up Additional Follow Up: Yes Orders/Referrals Dr. Israel in 7-10 days Activity Activity: Activity as Tolerated Driving Instructions: No Driving for 1 Week NO SMOKING: NO SMOKING Nothing Inside Vagina: No Douching, No [place], No Tampons Diet Discharge Diet: No Restrictions Symptoms to Report to : Bleeding Excessive, Pain Increased, Fever Over 101 Degrees F, Vaginal Bleeding Increase, Questions/Concerns For Any Problems or Questions: Contact Your Physician Skin/Wound Care Infection Signs and Symptoms: Increased Redness, Foul Odor of Wound, Increased Drainage, Skin Itchy or Has a Rash, Increased Swelling, Temperature Above 101 F Operative Area Clean and Dry: Keep Incision Clean/Dry Stitches/[place]/Dermabond: Dermabond, Care of Stitches Bathing Instructions: GINNA Sow DO Jul 15, 2021 07:22
[2021-07-15] MEDS ORDERED: ACHD5005 PO (07:23)
[2021-07-15] MEDS ORDERED: IBUP-844 PO (07:23)
[2021-07-15] MEDS ORDERED: DOCU100C37 PO (07:23)
[2021-07-15] MEDS ORDERED: LACTATED RINGERS 1,000 ML IV PRN (07:30)
[2021-07-15] MEDS ORDERED: CATHETER FLUSH 10 ML SYR IV PRN (07:30)
[2021-07-15] MEDS ORDERED: CITRIC ACID/SOB CIT (BICITRA) 30 ML UDC PO ONE (07:30)
[2021-07-15] MEDS ORDERED: FAMOTIDINE 20MG/2ML IV (PEPCID) IV ONE (07:30)
[2021-07-15] MEDS ORDERED: METOCLOPRAMIDE INJ 10 MG/2 ML (REGLAN) IV ONE (07:30)
--- NOTE | 2021-07-15 07:38 | History & Physical-OB ---
OB - Chief Complaint & HPI Date/Time Date of Admission: Date of Admission: Jul 15, 2021 at 06:02 Date seen by a Provider: Jul 15, 2021 Time Seen by a Provider: 07:05 Chief Complaint/History OB-Reason for Admission/Chief: Section Hx : 4 Hx Para: 3 Expected Date of Delivery: November 15, 2021 Gestational Age in Weeks: 22 Gestational Age in Days: 3 Indication for : desires repeat , other ( demise with placenta previa) Other reason for admission: Patient seen yesterday for routine PNV, and found to have IUFD at 22 weeks. Denied any concerns at that time. Discussed due to the previa the need for and the significant increased risk for hemorrhage during the procedure including risk of possible hysterectomy. Admission Nurse Assessment Rev: Yes History of Labs O pos Antibody neg RNI Allergies and Home Medications Allergies Coded Allergies: No Known Drug Allergies (Unverified , 01/01/20) Patient Home Medication List Home Medication List Reviewed: Yes Docusate Sodium (Docusate Sodium) 100 Mg Capsule, 100 MG PO BID PRN for CONSTIPATION-1ST LINE Prescribed by: GINNA RUTLEDGE on 07/15/21722 Hydrocodone Bit/Acetaminophen (HYDROcodone/APAP 5 MG/325 MG TAB) 1 Tab Tab, 1-2 EA PO Q6HR PRN for PAIN-MODERATE (5-7) Prescribed by: GINNA RUTLEDGE on 07/15/21722 Ibuprofen (Ibu) 600 Mg Tablet, 600 MG PO Q6HR Prescribed by: GINNA RUTLEDGE on 07/15/21722 Discontinued Medications Docusate Sodium (Dok) 100 Mg Capsule, 100 MG PO BID PRN for CONSTIPATION-1ST LINE Discontinued Reason: No Longer Taking Prescribed by: GINNA RUTLEDGE on 08/03/20727 Last Action: Discontinued Hydrocodone Bit/Acetaminophen (HYDROcodone/APAP 5 MG/325 MG TAB) 1 Tab Tab, 1-2 TAB PO Q6HR PRN for PAIN-MODERATE (5-7) Discontinued Reason: No Longer Taking Prescribed by: GINNA RUTLEDGE on 08/03/20727 Last Action: Discontinued Ibuprofen (Ibu) 600 Mg Tablet, 600 MG PO Q6HR Discontinued Reason: No Longer Taking Prescribed by: GINNA RUTLEDGE on 08/03/20727 Last Action: Discontinued Pantoprazole Sodium (Pantoprazole Sodium) 40 Mg Tablet., 40 MG PO DAILY, (Reported) Discontinued Reason: No Longer Taking Entered as Reported by: GARIMA MORALES on 07/27/20 1244 Last Action: Discontinued Vit/Iron Fumarate/FA ( Tablet) 1 Each Tablet, 1 EACH PO DAILY, (Reported) Discontinued Reason: No Longer Taking Entered as Reported by: MONA ANGELA on 01/01/20 1534 Last Action: Discontinued OB - History Hx of Present Care: Yes Ultrasounds: Abnormal US findings (placenta previa) Obstetrical Complications: None Medical Complications: None Patient Past Medical History Hx of Tobacco use and LEEP Immunizations Influenza Vaccine Up-to-Date: No; Not Current OB - Admission Exam Physical Exam Vitals: Vital Signs 07/15/21 07/15/21 06:20 06:56 Temp 36.9 Pulse 75 Resp 18 B/P (MAP) 137/79 (98) Pulse Ox 99 O2 Delivery Room Air HEENT: NCAT Heart: Rhythm Normal Lungs: Clear Abdomen: Gravid OB - Assessment/Plan/Diagnosis Assessment Assessment: section Admission Dx 36 yo @ 22 weeks IUFD Previous Complete placenta previa AMA Tobacco use Admission Status: Inpatient Order (span 2 midnights) Reason for Inpatient Admission: Repeat at 22 weeks for IUFD, placenta previa Plan Plan: Section GINNA RUTLEDGE DO Jul 15, 2021 07:38
[2021-07-15] MEDS: LACTATED RINGERS 1,000 ML IV PRN ×2 (07:53→10:05)
[2021-07-15 07:55] LABS: BASOPHILS % (AUTO) 0 % (0-10); EOSINOPHILS # (AUTO) 0.1 10^3/uL (0.0-0.3); EOSINOPHILS % (AUTO) 0 % (0-10); HEMATOCRIT 40 % (35-52); HEMOGLOBIN 13.4 g/dL (11.5-16.0); LYMPHOCYTES # (AUTO) 2.5 10^3/uL (1.0-4.0); LYMPHOCYTES % (AUTO) 14 % (12-44); MEAN CORPUSCULAR HEMOGLOBIN 33 pg (25-34); MEAN CORPUSCULAR HGB CONC 34 g/dL (32-36); MEAN CORPUSCULAR VOLUME 98 fL (80-99); MEAN PLATELET VOLUME 10.1 fL (9.0-12.2); MONOCYTES # (AUTO) 0.8 10^3/uL (0.0-1.0); MONOCYTES % (AUTO) 4 % (0-12); NEUTROPHILS # (AUTO) 14.9 10^3/uL (1.8-7.8); NEUTROPHILS % (AUTO) 81 % (42-75); PLATELET COUNT 317 10^3/uL (130-400); WHITE BLOOD COUNT 18.5 10^3/uL (4.3-11.0)
[2021-07-15 08:15] LABS: LYMPHOCYTES % (MANUAL) 15 %; MONOCYTES % (MANUAL) 2 %; NEUTROPHILS % (MANUAL) 83 %; RBC MORPH NORMAL
[2021-07-15] MEDS: OXYTOCIN PRE-MIX DRIP 500 ML IV SCH ×2 (08:20→08:45)
[2021-07-15] MEDS ORDERED: METHYLERGONOVINE 0.2 MG/ML (METHERGINE) AMP ONE (08:33)
[2021-07-15] MEDS ORDERED: KETOROLAC 30 MG/ML VIAL ONE (08:39)
[2021-07-15] MEDS ORDERED: PHENYLEPHRINE 100 MCG/ML 10 ML (ANESTHESIA) SYR ONE (08:52)
[2021-07-15] MEDS: DOCUSATE SODIUM 100 MG (COLACE) CAP PO SCH ×2 (09:00→20:00)
[2021-07-15] MEDS ORDERED: morphine INJ 10 MG/ML 1ML (SYR OR VIAL) IVP ONE (09:30)
[2021-07-15] MEDS ORDERED: HYDROmorphone 2 MG/ML VIAL (DILAUDID) IV ONE (09:30)
[2021-07-15] MEDS ORDERED: SEVOFLURANE (ULTANE) 15 ML INHAL SOLN ONE (09:35)
[2021-07-15] MEDS: KETOROLAC 30 MG/ML VIAL IV SCH ×3 (09:40→22:17)
[2021-07-15] MEDS: HYDROcodone/APAP 5 MG/325 MG (LORTAB) TAB PO PRN ×2 (13:04→20:00)
[2021-07-15] MEDS ORDERED: NICOTINE 14 MG (NICODERM) PATCH TD SCH (13:30)
--- NOTE | 2021-07-15 13:42 | OPERATIVE REPORT ---
DATE OF SERVICE: PREOPERATIVE DIAGNOSES: 1. A 36-year-old G4, P3 at 22 weeks and 3 days gestation. 2. Intrauterine demise. 3. Placenta previa. 4. Repeat section x3. POSTOPERATIVE DIAGNOSES: 1. A 36-year-old G4, P3 at 22 weeks and 3 days gestation. 2. Intrauterine demise. 3. Placenta previa. 4. Repeat section x3. PROCEDURE: Classical via low Pfannenstiel skin incision. SURGEON: Garrett Rutledge DO LEARNING SERVICES COORDINATOR: Annalisa Richey DNP, was necessary for manipulation and retraction throughout the procedure. ANESTHESIA: General endotracheal. ESTIMATED BLOOD LOSS: 500 mL. URINE OUTPUT: 200 mL clear at the end of the procedure. FLUIDS: 1200 mL lactated Ringer's solution. FINDINGS: A fetus approximately 22 weeks and 3 days gestation, grossly normal appearing uterus, bilateral fallopian tubes and ovaries. Placenta that is ischemic with evidence of multiple small ischemic infarcts throughout. SPECIMEN SENT: Placenta, cord and fetus. INDICATIONS FOR PROCEDURE: This 36-year-old female is a patient who had come to the office yesterday for routine visit. Upon her visit, she was found to have no cardiac activity at 22 weeks and 3 days gestation. She also had a history of a complete previa, which had not yet resolved. Also, three prior cesareans due to the inability to deliver vaginally through a previa as well as inability to utilize prostaglandin agents due to . I discussed with the patient proceeding with repeat . Modality of this was discussed likely midline classical incision both to avoid extensive bleeding with the previa encounter as well as due to the size of the fetus was discussed. After all their questions were answered, consent was obtained in the preoperative area, the patient was taken to the operating room. OPERATIVE REPORT IN DETAIL: Once in the operating room, general anesthesia was found to be adequate, She was placed in supine position with leftward tilt, prepped and draped in normal sterile fashion. A timeout was performed. I then make a Pfannenstiel skin incision through the previously existing scar using knife and carried down to underlying fascia using Bovie cautery. The fascial incision extended laterally using Bovie cautery. Superior aspect of fascial incision was then grasped with Dawson clamps, tented up and dissected off the underlying rectus muscles. The inferior aspect of fascial incision was then grasped with Dawson clamps, tented up and dissected off the underlying rectus muscles. Rectus muscles were dissected down the midline using Tenorio scissors, which exposed the peritoneum, which I entered bluntly and extended using blunt traction. Bryon ring retractor was placed in the peritoneal incision, which offers excellent lateral sidewall retraction. I identified the uterus itself is approximately 22 to 20-week size. A midline incision was made in the uterus until membranes were encountered and then it was extended inferiorly towards the bladder using bandage scissors. Amniotomy was performed, in the process of doing this dark brown stained fluid was noted at the time of rupture of membranes. The fetus was found in the vertex presentation and it is lifted up out of the vertical incision and passed off to nurses in attendance. Placenta with cord then delivered spontaneously thereafter. IV Pitocin was initiated to facilitate uterine contraction. The uterus remained slightly boggy. Therefore, 0.2 mg of Methergine IM were given intraoperatively. I exteriorized the uterus and clear it of all endometrial clots and debris. I then proceeded with closing the vertical incision in 3 separate layers, the first 2 layers of 0 Vicryl suture in a running locked fashion. The final layer is with 0 Monocryl in a running fashion, after which there was no active bleeding noted from the incision plane or any of my dissection planes, to ensure excellent postoperative hemostasis, I covered the midline incision with both Surgicel and then with Interceed to prevent postoperative adhesion formation. I then placed the uterus back in the pelvis and copiously irrigated the pelvis using normal saline. There was no active bleeding noted from any of my dissection planes. I then removed the Bryon ring retractor and proceeded with closing the rectus muscle and peritoneum in one layer using 0 Vicryl suture in running fashion. The fascia was reapproximated using 0 Vicryl suture in running fashion. The subcutaneous tissue was reapproximated using 3-0 plain interrupted subcutaneous stitch and the skin reapproximated using 4-0 Monocryl running subcuticular. Dermabond was applied to incision and sterile dressing with adhesive white tape. Two grams Ancef given preoperatively for infection prophylaxis. The patient tolerated the procedure well and sent to recovery in stable condition. Lap and sponge counts were correct at the end of the procedure. Instrument count was correct as well. Job ID: [id number] DocumentID: [id number] Dictated Date: 07/15/2021 09:11:27 Data Keyer Date: 07/15/2021 13:40:37 Dictated By: GARRETT RUTLEDGE DO
[2021-07-15] MEDS ORDERED: FLU QUADRIvalent (3YOA+) 60 mcg/0.5 ml 2021-22(AFLURIA) IM ONE (14:45)
[2021-07-15] MEDS: CATHETER FLUSH 10 ML SYR IV SCH ×2 (15:23→22:18)
[2021-07-15] MEDS ORDERED: FAMOTIDINE 20 MG (PEPCID) TABLET PO PRN (18:45)
[2021-07-15] MEDS: CALCIUM CARBONATE 500 MG (TUMS) TAB.CHEW PO PRN (19:00)
[2021-07-15] MEDS ORDERED: SIMETHICONE 80 MG (MYLICON) CHEW ONE (19:59)
[2021-07-15] MEDS: SIMETHICONE 80 MG (MYLICON) CHEW PO PRN (20:01)
[2021-07-16 01:00] VITALS: BP 109/57
[2021-07-16] MEDS: HYDROcodone/APAP 5 MG/325 MG (LORTAB) TAB PO PRN ×2 (02:08→09:40)
[2021-07-16 05:00] VITALS: BP 109/57
[2021-07-16] MEDS: KETOROLAC 30 MG/ML VIAL IV SCH (05:16)
[2021-07-16 06:15] LABS: BASOPHILS % (AUTO) 0 % (0-10); EOSINOPHILS % (AUTO) 0 % (0-10); HEMATOCRIT 31 % (35-52); HEMOGLOBIN 10.3 g/dL (11.5-16.0); LYMPHOCYTES # (AUTO) 2.6 10^3/uL (1.0-4.0); LYMPHOCYTES % (AUTO) 15 % (12-44); MEAN CORPUSCULAR HEMOGLOBIN 33 pg (25-34); MEAN CORPUSCULAR HGB CONC 34 g/dL (32-36); MEAN CORPUSCULAR VOLUME 97 fL (80-99); MEAN PLATELET VOLUME 10.4 fL (9.0-12.2); MONOCYTES # (AUTO) 1.2 10^3/uL (0.0-1.0); MONOCYTES % (AUTO) 7 % (0-12); NEUTROPHILS # (AUTO) 13.7 10^3/uL (1.8-7.8); NEUTROPHILS % (AUTO) 77 % (42-75); PLATELET COUNT 347 10^3/uL (130-400); WHITE BLOOD COUNT 17.7 10^3/uL (4.3-11.0)
--- NOTE | 2021-07-16 08:03 | Anesthesia-General Post-Op ---
General Patient Condition Mental Status/LOC: Same as Preop Cardiovascular: Satisfactory Nausea/Vomiting: Absent Respiratory: Satisfactory Pain: Controlled Complications: Absent Post Op Complications Complications None Follow Up Care/Instructions Patient Instructions None needed. Anesthesia/Patient Condition Patient Condition Patient is doing well, no complaints, stable vital signs, no apparent adverse anesthesia problems. No complications reported per nursing. D/C home per [facility] [place] Criteria: Yes STEPHANIE KNOTT CRNA Jul 16, 2021 08:03
[2021-07-16] MEDS ORDERED: NICOTINE PATCH REMOVAL TP SCH (08:59)
[2021-07-16 09:39] VITALS: BP 123/71
[2021-07-16] MEDS: DOCUSATE SODIUM 100 MG (COLACE) CAP PO SCH (09:40)
[2021-07-16] MEDS: CALCIUM CARBONATE 500 MG (TUMS) TAB.CHEW PO PRN (09:41)
[2021-07-16] MEDS: SIMETHICONE 80 MG (MYLICON) CHEW PO PRN (09:41)
--- NOTE | 2021-07-16 11:59 | Postpartum Progress Note ---
Post Op Post-operative Day #1 Subjective: Patient is without complaints. Ambulating, voiding without difficulty. Tolerating a regular diet without nausea or vomiting. Lochia is minimal. Pain is well controlled with oral pain medications. Passing flatus. Denies VILLAR, CP, vision abnormalities, SOB, palpitations, LE pain/swelling, lightheadedness/dizziness. Desires discharge home today. Objective: Vital Signs 07/16/21 09:39 Temp 36.5 Pulse 77 Resp 18 B/P (MAP) 123/71 (88) Pulse Ox 97 O2 Delivery Room Air Physical Exam: General - Alert and oriented, no apparent distress Respirations: symmetric chest rise, non-labored respirations Heart: normal rate and peripheral perfusion Abdomen - Soft, appropriately tender to palpation, non-distended, fundus firm at umbilicus Incision - clean, dry and intact; no erythema or induration, no drainage Extremities - no edema, negative Mary Lou's bilaterally Assessment: post-operative day #1, status post repeat delivery of demised fetus. Mood stable. Coping well Recovering well, hemodynamically stable Plan: Routine post-operative care. Encourage ambulation. VTE prophylaxis: SCDs, ambulation. Plan for discharge: home today Vitals - Labs Vital Signs - I&O Vital Signs Date Time Temp Pulse Resp B/P (MAP) Pulse Ox O2 Delivery O2 Flow Rate FiO2 07/16/21 09:39 36.5 77 18 123/71 (88) 97 Room Air 07/16/21 05:00 36.7 67 18 109/57 (74) 97 Room Air 07/16/21 01:00 36.9 68 18 109/57 (74) 97 Room Air 07/15/21 20:01 36.6 72 16 102/60 (74) 97 Room Air 07/15/21 15:20 36.4 64 16 124/51 (75) 98 Room Air I & O 07/16/21 07:00 Intake Total 1290 ml Output Total 590 ml Balance 700 ml Labs Laboratory Tests 07/16/21 06:05: White Blood Count 17.7H, Red Blood Count 3.16L, Hemoglobin 10.3#L, Hematocrit 31L, Mean Corpuscular Volume 97, Mean Corpuscular Hemoglobin 33, Mean Corpuscular Hemoglobin Concent 34, Red Cell Distribution Width 13.7, Platelet Count 347, Mean Platelet Volume 10.4, Immature Granulocyte % (Auto) 1, Neutrophils (%) (Auto) 77H, Lymphocytes (%) (Auto) 15, Monocytes (%) (Auto) 7, Eosinophils (%) (Auto) 0, Basophils (%) (Auto) 0, Neutrophils # (Auto) 13.7H, Lymphocytes # (Auto) 2.6, Monocytes # (Auto) 1.2H, Eosinophils # (Auto) 0.0, Basophils # (Auto) 0.0, Immature Granulocyte # (Auto) 0.2H DIONICIO FAUSTIN MD Jul 16, 2021 11:59
[2021-07-16] MEDS ORDERED: IBUPROFEN 600 MG (MOTRIN) TAB PO SCH (12:00)
--- NOTE | 2021-07-16 12:07 | Discharge Inst-Simple/Standard ---
Discharge Inst-Standard Reconcile Patient Problems Problems Reviewed?: Yes Discharge Medications New, Converted or Re-Newed RX: Transmitted to Pharmacy Patient Instructions/Follow Up Plan of Care/Instructions/FU: Post operative day #1 s/p delivery of demised fetus - No heavy lifting greater than 5-10 lbs for 8 weeks - Nothing in the vagina for 8 weeks; no tampons or intercourse - No submersion in water including bathtubs, hot-tubs, pools. other bodies of water Activity as Tolerated: Yes Discharge Diet: No Restrictions Return to The Hospital For: - fever of 100.4 F or greater, intractable nausea, vomiting, fevers, chills chest pain, shortness, of breath, or other concerns - persistent headaches, vision abnormalities, Chest pain, or shortness of breath might be symptoms of pre-ecmlapsia, and you should return for further evaluation DIONICIO FAUSTIN MD Jul 16, 2021 12:07
[2021-07-16] MEDS ORDERED: ACHD5005 PO (12:41)
[2021-07-16] MEDS ORDERED: DOCU100C37 PO (12:41)
[2021-07-16] MEDS ORDERED: IBUP-844 PO (12:41)
== END 2021-07-16 12:30 | disposition home or self-care (01) | DRG 787 ==
LOC: LDRP 06:02 → WS 10:30
PROVIDERS: ADMIT Obstetrics & Gynecology; ATTEND Obstetrics & Gynecology
PROC: 10D00Z1 Extraction of Products of Conception, Low, Open Approach (ICD-10-PCS; principal; 2021-07-15 07:54)
DX: O36.4XX0 Maternal care for intrauterine death, not applicable or unspecified (principal); O44.02 Complete placenta previa NOS or without hemorrhage, second trimester; Z3A.22 22 weeks gestation of pregnancy; Z37.1 Single stillbirth; O34.211 Maternal care for low transverse scar from previous cesarean delivery; Z87.891 Personal history of nicotine dependence
CPT/HCPCS: 36410; 36415; 76937; 85007; 85025; 85027; 86850; 86900; 86901; 86922; 90707

== ENCOUNTER 2021-08-02 13:50 | Emergency (ER) | payer MEDICAID ==
[~2021-08-02 13:50] MED LIST changes: +DOCU100C37 PO
== END 2021-08-02 14:27 | disposition left against medical advice (07) ==
LOC: EDUNIT# 13:50 → ER 13:53
DX: Z48.01 Encounter for change or removal of surgical wound dressing (principal)